=== PATIENT | female | born 1960 | race American Indian/Alaskan Native ===

== ENCOUNTER 2021-04-14 09:58 | Outpatient (CLI) | payer OTHER ==
--- NOTE | 2021-04-14 16:41 | Ultrasound Report ---
ULTRASOUND ABDOMEN, LIMITED INDICATION / CLINICAL INFORMATION: RUQ PAIN/ABD PAIN. COMPARISON: None available. FINDINGS: PANCREAS: Obscured by overlying bowel gas. AORTA: Not visualized. IVC: No significant abnormality. LIVER: The liver normal in size measuring approximately 15.1 cm.No focal hepatic lesion identified. T he main portal vein was not imaged. GALLBLADDER: Cholelithiasis. No evidence of wall thickening or pericholecystic fluid. BILE DUCTS: No significant abnormality. Common bile duct measures 3 mm. RIGHT KIDNEY: The right kidney measures 9.0 cm. No significant abnormality. FREE FLUID: None. ADDITIONAL FINDINGS: None. IMPRESSION: 1. Technically limited exam. 2. Cholelithiasis without sonographic evidence of acute cholecystitis. Scribed by: Perla Dahl RDMS, RVT Scribed: 04/14/2021 11:56 AM I have reviewed the images, agree with this report, and edited this report as needed. Signer Name: Katie Loaiza MD Signed: 04/14/2021 4:37 PM Workstation Name: [id number]
== END 2021-04-14 09:59 | disposition home or self-care (01) ==
LOC: SPVWC 09:58
PROVIDERS: ATTEND Family Medicine
DX: R10.11 Right upper quadrant pain (principal)
CPT/HCPCS: 76705